=== PATIENT | male | born 1950 | race American Indian/Alaskan Native ===

== ENCOUNTER 2019-06-19 17:19 | Emergency (ER) | payer MEDICARE, OTHER ==
[2019-06-19 17:30] VITALS: BP 198/175
--- NOTE | 2019-06-19 18:22 | Emergency Department Report ---
Chief Complaint: Medical Clearance Stated Complaint: MEDICAL CLEARANCE Time Seen by Provider: 06/19/19 18:07 - HPI History of Present Illness: This is a 68-year-old male who presents to the ED complaining of some tingling sensation to his finger. Patient states that he was told some time ago that he may have diabetes but was never diagnosed. Patient states that symptoms initially started about a year ago after he was diagnosed with prostate cancer and had radiotherapy at [facility]. Patient states that he did have a urology and has an appointment with [facility] on 12 July. Patient also states that he has a primary care physician on [facility]. Patient states that he just wanted to come here to evaluate is tingling before he goes to his primary care physician. Patient also worried about his PSA level. Other than that patient is well he is having no fever, chills, nausea vomiting, chest pain, shortness of breath,, dizziness, headache or blurry vision - ROS Review of Systems: As noted in HPI - Exam Vital Signs: Vital Signs 06/19/19 17:26 Temperature 97.5 F L Pulse Rate 102 H Respiratory 20 Rate Blood Pressure 198/175 O2 Sat by Pulse 96 Oximetry Physical Exam: GENERAL: Alert and oriented x3, no apparent distress, Normal Gait, atraumatic. HEAD: Head is normocephalic and a-traumatic. EXTREMITIES/MUSCULOSKELETAL: No cyanosis, clubbing, rash, lesions or edema. Full ROM bilaterally. UE/LE Pulses 2+ bilaterally. LE and UE 5+ strength bilaterally. NEUROLOGIC: The patient is cooperative with no focal neurologic deficits. Cranial nerves II through XII are grossly intact. Normal speech. Normal sensation in bilateral upper and lower extremities. SKIN: Warm and dry, No lesions, No ulceration or induration present. MSE screening note: Focused history and physical exam performed. Due to findings the following was ordered: ED Medical Decision Making - Medical Decision Making This 68-year-old male presented for paresthesia of the fingers Fingerstick was obtained. Vital signs are normal. I discussed with patient to keep his appointment with his urologist and also follow-up with his primary care physician in the next 2 to 3 days to have his PSA checked. I discussed with patient that his primary care physician will be able to check him or screening for diabetes as well as check his PSA ED Disposition for MSE Clinical Impression: Paresthesia of finger Disposition: DC-01 TO HOME OR SELFCARE Is pt being admited?: No Does the pt Need Aspirin: No Condition: Stable Instructions: Paresthesia (ED) Additional Instructions: Make sure to follow up with the primary care physician on [address] as discuss ed. Ask your primary care to screen you for diabetes. Your blood sugar in the ED today was within normal range. P appointment with [facility]. If you have any worsening symptoms or develop new symptoms please return to ED immediately. Referrals: PRIMARY CARE, [Primary Care Provider] - 3-5 Days Forms: Work/School Release Form(ED) Time of Disposition: 18:49
== END 2019-06-19 19:15 | disposition home or self-care (01) ==
LOC: ED 17:19
DX: R20.2 Paresthesia of skin (principal)
CPT/HCPCS: 82962; 99283

== ENCOUNTER 2020-01-08 23:38 | Emergency (ER) | payer OTHER, MEDICARE ==
[2020-01-09] MEDS ORDERED: ACETAMINOPHEN W/CODEINE 300-30 MG TAB PO ONE (05:05)
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
[2020-01-09 07:01] VITALS: BP 163/93
== END 2020-01-09 06:45 | disposition home or self-care (01) ==
LOC: ED 23:38
DX: R07.89 Other chest pain (principal); I10 Essential (primary) hypertension; E11.9 Type 2 diabetes mellitus without complications; Z79.1 Long term (current) use of non-steroidal anti-inflammatories (NSAID); Z79.899 Other long term (current) drug therapy; V49.49XA Driver injured in collision with other motor vehicles in traffic accident, initial encounter; W22.10XA Striking against or struck by unspecified automobile airbag, initial encounter; Y93.89 Activity, other specified; Y92.410 Unspecified street and highway as the place of occurrence of the external cause; Y99.8 Other external cause status
CPT/HCPCS: 71045; 93005